=== PATIENT | male | born 1965 | race Caucasian/White ===

== ENCOUNTER 2019-01-14 15:54 | Emergency (ER) | payer OTHER ==
[~2019-01-14] VITALS: Ht 165.1 cm; Wt 74.0 kg
[2019-01-14] MEDS ORDERED: KETOROLAC 60MG/2ML VIAL IM STA (18:19)
[2019-01-14] MEDS ORDERED: ACETAMINOPHEN WITH CODEINE 300/30MG TABLET PO STA (18:19)
[2019-01-14 19:44] LABS: CLARITY URINE CLEAR (CLEAR); COLOR URINE YELLOW (YELLOW); KETONES URINE NEGATIVE (NEGATIVE); LEUKOCYTE ESTERASE URINE NEGATIVE (NEGATIVE); NITRITE URINE NEGATIVE (NEGATIVE); OCCULT BLOOD URINE NEGATIVE (NEGATIVE); PROTEIN URINE NEGATIVE (NEGATIVE); UROBILINOGEN URINE 0.2 E.U./dL (0.2-1.0)
[2019-01-14 19:53] VITALS: BP 143/75
== END 2019-01-14 20:18 | disposition home or self-care (01) ==
LOC: ER 15:54
DX: M54.42 Lumbago with sciatica, left side (principal); F17.200 Nicotine dependence, unspecified, uncomplicated; E11.9 Type 2 diabetes mellitus without complications
CPT/HCPCS: 81003; 82962; 96372; 99283; J1885

== ENCOUNTER 2020-04-11 14:10 | Emergency (ER) | payer OTHER ==
[~2020-04-11] VITALS: Ht 165.1 cm; Wt 72.0 kg
[2020-04-11 14:22] VITALS: BP 148/86
[2020-04-11] MEDS ORDERED: HYDROCODONE/ACETAMINOPHEN 5/325MG TABLET PO ONE (16:30)
[2020-04-11] MEDS ORDERED: IBUPROFEN 600MG TABLET PO ONE (16:30)
== END 2020-04-11 17:50 | disposition home or self-care (01) ==
LOC: ER 14:10
DX: S16.1XXA Strain of muscle, fascia and tendon at neck level, initial encounter (principal); S39.012A Strain of muscle, fascia and tendon of lower back, initial encounter; S20.212A Contusion of left front wall of thorax, initial encounter; S20.211A Contusion of right front wall of thorax, initial encounter; E11.9 Type 2 diabetes mellitus without complications; V49.88XA Car occupant (driver) (passenger) injured in other specified transport accidents, initial encounter; Y93.89 Activity, other specified; Y92.89 Other specified places as the place of occurrence of the external cause; Y99.8 Other external cause status
CPT/HCPCS: 71045; 72131; 72170; 99285

== ENCOUNTER 2021-01-10 02:10 | Emergency (ER) | payer OTHER ==
[~2021-01-10] VITALS: Ht 165.1 cm; Wt 78.0 kg
[2021-01-10] MEDS ORDERED: KETOROLAC 30MG/ML VIAL IM ONE (03:45)
[2021-01-10] MEDS ORDERED: T3 PO (03:54)
[2021-01-10 04:48] VITALS: BP 136/75
== END 2021-01-10 04:50 | disposition home or self-care (01) ==
LOC: ER 02:10
DX: R51.9 Headache, unspecified (principal); E11.9 Type 2 diabetes mellitus without complications; I10 Essential (primary) hypertension; E78.00 Pure hypercholesterolemia, unspecified
CPT/HCPCS: 82962; 96372; 99283; J1885

== ENCOUNTER 2022-07-31 12:51 | Emergency (ER) | payer OTHER ==
[~2022-07-31] VITALS: Ht 165.1 cm; Wt 68.0 kg
[~2022-07-31 12:51] MED LIST: ALOG1TAB5 MT; ATOR40TA70 PO; LEVO-65 MT; LOSA50TA41 PO; METF-414 PO; T3 PO
[2022-07-31 15:00] VITALS: BP 128/70
[2022-07-31] MEDS ORDERED: HYDROCODONE/ACETAMINOPHEN 5/325MG TABLET PO ONE (15:00)
[2022-07-31] MEDS ORDERED: KETOROLAC 60MG/2ML VIAL IM ONE (15:00)
[2022-07-31] MEDS ORDERED: IBUP-2029 MT (15:53)
== END 2022-07-31 16:19 | disposition home or self-care (01) ==
LOC: ER 12:51
DX: S89.91XA Unspecified injury of right lower leg, initial encounter (principal); E78.5 Hyperlipidemia, unspecified; E11.9 Type 2 diabetes mellitus without complications; I10 Essential (primary) hypertension; Y93.66 Activity, soccer; Y92.89 Other specified places as the place of occurrence of the external cause; Y99.8 Other external cause status
CPT/HCPCS: 73562; 96372; 99283; J1885; L1830

== ENCOUNTER 2022-10-19 12:11 | Emergency (ER) | payer MEDICAID, OTHER ==
[~2022-10-19] VITALS: Ht 165.1 cm; Wt 64.0 kg
[~2022-10-19 12:11] MED LIST changes: +IBUP-2029 MT
[2022-10-19 12:19] VITALS: BP 166/81
[2022-10-19] MEDS ORDERED: KETOROLAC 60MG/2ML VIAL IM ONE (16:30)
[2022-10-19] MEDS ORDERED: METHYLPREDNISOLONE SOD SUCC 125 MG/2 ML VIAL IM ONE (16:30)
[2022-10-19] MEDS ORDERED: CEFTRIAXONE SODIUM 1 G/VIAL IM ONE (16:30)
[2022-10-19] MEDS ORDERED: HYDR-4001 MT (19:04)
[2022-10-19] MEDS ORDERED: AMOX1TAB16 MT (19:04)
[2022-10-19] MEDS ORDERED: IBUP-2028 MT (19:04)
== END 2022-10-19 19:40 | disposition home or self-care (01) ==
LOC: ER 13:28
DX: K04.7 Periapical abscess without sinus (principal); L03.211 Cellulitis of face; E11.9 Type 2 diabetes mellitus without complications
CPT/HCPCS: 70450; 82962; 96372; 99285; J0696; J1885; J2930; Z7610